=== PATIENT | female | born 1940 | race Caucasian/White ===

== ENCOUNTER → 2017-11-07 | Outpatient (CLI) | payer OTHER ==
[~2017-11-07] MED LIST: ATORVASTATIN CA20 MG PO; CLONIDINE HCL0.1 MG PO; CLOPIDOGREL75 MG PO; HYDROCHLOROTHIA25 MG PO; HYDROCODON-ACE1 EAC9 PO; IOPAMIDOL 370 MG/ML 200 ML INFUS..BTL INJ ONE; LEVOTHYROXINE75 MCG PO; LISINOPRIL40 MG PO; METFORMIN HCL500 MG PO; METOPROLOL SUCC25 MG PO; PHENYTOIN SODI100 MG PO; SERTRALINE HCL100 MG PO; SODIUM CHLORIDE 0.9% 50ML 50 ML ONE
[2017-11-07 15:32] LABS: BLOOD UREA NITROGEN 17 mg/dL (7-26); BUN/CREATININE RATIO 19 (6-25); CREATININE, SERUM 0.88 mg/dL (0.57-1.11); EST GLOMERULAR FILTRATION RATE > 60 ML/MIN (60-)
--- NOTE | 2017-11-08 08:50 | Diagnostic Imaging Report ---
PROCEDURE: CTA ABD/PEL/BILATERAL LOWER EXT RUNOFF W \T\ W/O CONTRAST COMPARISON:None. INDICATIONS:PAD, DIVERTICULOSIS OF INTESTINE TECHNIQUE: Multi-detector CT technology with Dose Reduction was employed. Images were obtained after the administration of 100 cc of Omnipaque 350 intravenously. For optimization of anatomic evaluation, multiplanar and volume rendering reconstructions were performed. Advanced 3-D off-line postprocessing were performed on a dedicated stand-alone workstation under the direct supervision of the interpreting physician. FINDINGS: Abdominal aorta and iliac vessels: Scattered atherosclerotic changes are present throughout the abdominal aorta and bilateral lower extremity runoff. Minimal amount of plaque is noted around the origins of the great vessels. The superior mesenteric, inferior mesenteric, and celiac arteries are patent. Bilateral renal arteries are patent. The common, internal, and external iliac arteries are patent bilaterally. Femoral-popliteal vessels: Multiple short segment stenoses, without significant narrowing, are present. The common, superficial, and profunda femoral arteries are patent. Infrapopliteal vessels: Multiple short segment stenoses, without segmental narrowing, are present in the popliteal and infrapopliteal vessels bilaterally. The above the knee and below the knee segments of the popliteal artery are patent. The posterior tibial and peroneal arteries are patent. No opacification of the anterior tibial arteries is noted bilaterally. Patent three vessel runoff is present in the feet bilaterally. Abdominal and Pelvic soft-tissues and organs: Lung bases: No focal consolidation or parenchymal mass. No pleural effusion or pneumothorax. Liver: Normal parenchyma. No focal mass. Biliary: Cholecystectomy. No intrahepatic or extrahepatic biliary duct dilation. Spleen: No splenomegaly. No focal mass. Pancreas: Normal enhancement. No pancreatic duct dilation. No focal mass or peripancreatic soft tissue inflammatory changes. Adrenal Glands: No adrenal nodules. Kidneys: No obstructing calculi, hydronephrosis, or solid mass. GI: The stomach, small bowel, and colon are unremarkable. No air-fluid levels. No appendix is visualized. A moderate amount of retained feces limits intraluminal evaluation of the colon. Peritoneum/Retroperitoneum: No pneumoperitoneum or free intraperitoneal fluid. No lymphadenopathy. Scattered subcentimeter noncalcified non-necrotic lymph nodes are present in the retroperitoneum in the distribution of the proximal celiac and superior mesenteric arteries. No drainable fluid collection. Reproductive Organs: Hysterectomy. No ovaries are visualized. Musculoskeletal: No acute sclerotic or lucent lesion. Degenerative changes of the lumbar spine. CONCLUSION: 1. No acute arterial abnormality. 2. No acute abnormality of the abdomen and pelvis. 3. Absence of opacification of the anterior tibial arteries may represent limited contrast bolus or chronic occlusion. Dictated by: Bird Dougherty M.D. on 11/08/2017 at 8:50 Electronically approved by: Bird Dougherty M.D. on 11/08/2017 at 8:50
== END ==
LOC: CT 14:00
PROVIDERS: ATTEND Internal Medicine Cardiovascular Disease
DX: K57.90 Diverticulosis of intestine, part unspecified, without perforation or abscess without bleeding (principal)
CPT/HCPCS: 36415; 75635; 82565; 84520; Q9967

== ENCOUNTER 2020-02-13 06:37 | Inpatient (IN) | payer MEDICARE, OTHER ==
[~2020-02-13] VITALS: Ht 175.3 cm; Wt 88.0 kg
[~2020-02-13 06:37] MED LIST changes: -IOPAMIDOL 370 MG/ML 200 ML INFUS..BTL INJ ONE; -SODIUM CHLORIDE 0.9% 50ML 50 ML ONE
[2020-02-13 07:01] LABS: BASOPHILS % 0.2 % (0.0-1.0); EOSINOPHILS # (AUTO) 0.2 (0.0-0.4); EOSINOPHILS % 1.5 % (0.0-6.0); HEMATOCRIT 42.3 % (34.2-44.1); HEMOGLOBIN 14.4 g/dL (12.0-16.0); LYMPHOCYTES # (AUTO) 2.6 (1.0-3.2); LYMPHOCYTES % 26.1 % (18.0-39.1); MEAN CORPUSCULAR HEMOGLOBIN 30.8 pg (28-32); MEAN CORPUSCULAR VOLUME 90.4 fL (81-99); MONOCYTES # (AUTO) 0.7 (0.2-0.8); MONOCYTES % 7.3 % (4.4-11.3); NEUTROPHILS # (AUTO) 6.3 (2.1-6.9); NEUTROPHILS % 64.5 % (38.7-80.0); PLATELET COUNT 196 x10e3/uL (140-360); RED BLOOD COUNT 4.68 x10e6/uL (3.6-5.1); RED CELL DISTRIBUTION WIDTH 13.2 % (11.7-14.4)
[2020-02-13 07:20] LABS: ALBUMIN 4.1 g/dL (3.5-5.0); ALBUMIN/GLOBULIN RATIO 1.3 (0.8-2.0); ANION GAP 15.7 mmol/L (8-16); CALCIUM 9.8 mg/dL (8.4-10.2); CREATININE, SERUM 0.93 mg/dL (0.57-1.11); POTASSIUM 3.7 mmol/L (3.5-5.1)
[2020-02-13 07:26] LABS: CREATINE KINASE MB 0.3 ng/mL (0-5.0)
--- NOTE | 2020-02-13 07:55 | Diagnostic Imaging Report ---
Examination: Single AP view of the chest. COMPARISON: Portable chest 11/08/2013 INDICATION: Shortness of breath IMPRESSION: 1. Lines and Tubes: None 2. Lungs are well-inflated. Stable elevation of the right hemidiaphragm, which may be due to eventration. Stable predominantly linear opacities in the right lower lung, likely representing scarring. No consolidation or effusion. 3. Cardiomediastinal silhouette is normal. Pulmonary vasculature is normal. 4. No acute bony abnormalities. Degenerative changes in the thoracic spine. Signed by: Dr. Vinh Wilkins M.D. on 02/13/2020 7:52 AM
[2020-02-13] MEDS ORDERED: CLONIDINE HCL 0.1 MG TAB PO ONE (08:00)
[2020-02-13] MEDS ORDERED: FUROSEMIDE20 MG (09:35)
[2020-02-13] MEDS ORDERED: ALBUTEROL/IPRATROPIUM 3 ML NEB NEB ONE (09:45)
[2020-02-13] MEDS ORDERED: FUROSEMIDE INJ 10 MG/ML 2 ML VIAL IV ONE (09:45)
--- NOTE | 2020-02-13 09:45 | NUR ---
notified rt edilia centeno
--- NOTE | 2020-02-13 09:48 | Emergency Department Note ---
History of Present Illnes History of Present Illness Chief Complaint: Respiratory History of Present Illness This is a 79 year old female 79 Y/O FEMALE PT AAOX3 PRESENTS TO ED WITH INTERMITTENT SOB WITH EXERTION SINCE APPROX 0400 AM; PT REPORTS; "I JUST GET SOB WHEN I TRY TO WALK.". States this is chronic but wants to get COVID test. 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 Mode: [place] Cloth Piecer Required: No Onset (how long ago): hour(s) Location: lungs Quality: sob Radiation: Reports non-radiation Severity: mild Onset quality: gradual Timing of current episode: intermittent Progression: waxing and waning Chronicity: chronic Context: Denies recent illness Relieving factors: none Exacerbating factors: none Associated symptoms: Reports shortness of breath; Denies chest pain, Denies cough, Denies diaphoresis, Denies fever/chills Treatments prior to arrival: none Past Medical/Family History Physician Review I have reviewed the patient's past medical and family history. Any updates have been documented here. Past Medical History Recent Fever: No Clinical Suspicion of Infectio: No New/Unexplained Change in Ment: No Past Medical History: Hypertension, COPD Other Medical History: ARTHRITIS HIGH CHOLESTEROL SCOLIOSIS Past Surgical History: PCI Other Surgery: NASAL KNEE BRAIN (SUBDURAL HEMATOMA) CARDIAC STENTS X 4 Social History Smoking Cessation: Never Smoker Counseling Performed: No Alcohol Use: None Any Illegal Drug Use: No TB Exposure/Symptoms: No Physically hurt or threatened: No Other Last Tetanus: UNK Any Pre-Existing Lines (PICC,: No Is patient up to date on immun: Yes Last Flu: DENIES Last Pneumovax: UTD Review of Systems Review of Systems Constitutional: Reports no symptoms EENTM: Reports no symptoms Cardiovascular: Reports no symptoms; Denies chest pain Respiratory: Reports as per HPI, Reports dyspnea, Reports dyspnea on exertion Gastrointestinal: Reports no symptoms Genitourinary: Reports no symptoms Musculoskeletal: Reports no symptoms Integumentary: Reports no symptoms Neurological: Reports no symptoms Psychological: Reports no symptoms Endocrine: Reports no symptoms Hematological/Lymphatic: Reports no symptoms Physical Exam Related Data Allergies: Coded Allergies: Beta-Blockers (Beta-Adrenergic Bloc (Verified Allergy, 11/11/13) Iodinated Contrast Media - IV Dye (Verified Allergy, 11/11/13) carbamazepine (Verified Allergy, 11/11/13) rofecoxib (Verified Allergy, 11/11/13) Triage Vital Signs Vital Signs Date Time Temp Pulse Resp B/P (MAP) Pulse Ox O2 Delivery O2 Flow Rate FiO2 02/13/20 06:37 97.9 76 27 221/95 98 Vital signs reviewed: Yes Physical Exam CONSTITUTIONAL Constitutional: Present well-developed, Present well-nourished HENT HENT: Present normocephalic, Present atraumatic, Present oropharynx clear/moist, Present nose normal HENT L/R: Present left ext ear normal, Present right ext ear normal EYES Eyes: Reports PERRL, Reports conjunctivae normal NECK Neck: Present ROM normal PULMONARY Pulmonary: Present effort normal, Present breath sounds normal CARDIOVASCULAR Cardiovascular: Present LLE edema (trace), Present RLE edema (trace) GASTROINTESTINAL Abdominal: Present soft, Present nontender, Present bowel sounds normal GENITOURINARY Genitourinary: Present exam deferred SKIN Skin: Present warm, Present dry MUSCULOSKELETAL Musculoskeletal: Present ROM normal NEUROLOGICAL Neurological: Present alert, Present oriented x 3, Present no gross motor or sensory deficits PSYCHOLOGICAL Psychological: Present mood/affect normal, Present judgement normal Results Laboratory Result Diagram: 02/13/2030 02/13/2030 Laboratory Laboratory Tests Test 02/13/20 06:30 White Blood Count 9.78 x10e3/uL (4.8-10.8) Red Blood Count 4.68 x10e6/uL (3.6-5.1) Hemoglobin 14.4 g/dL (12.0-16.0) Hematocrit 42.3 % (34.2-44.1) Mean Corpuscular Volume 90.4 fL (81-99) Mean Corpuscular Hemoglobin 30.8 pg (28-32) Mean Corpuscular Hemoglobin Concent 34.0 g/dL (31-35) Red Cell Distribution Width 13.2 % (11.7-14.4) Platelet Count 196 x10e3/uL (140-360) Neutrophils (%) (Auto) 64.5 % (38.7-80.0) Lymphocytes (%) (Auto) 26.1 % (18.0-39.1) Monocytes (%) (Auto) 7.3 % (4.4-11.3) Eosinophils (%) (Auto) 1.5 % (0.0-6.0) Basophils (%) (Auto) 0.2 % (0.0-1.0) Neutrophils # (Auto) 6.3 (2.1-6.9) Lymphocytes # (Auto) 2.6 (1.0-3.2) Monocytes # (Auto) 0.7 (0.2-0.8) Eosinophils # (Auto) 0.2 (0.0-0.4) Basophils # (Auto) 0.0 (0.0-0.1) Absolute Immature Granulocyte (auto 0.04 x10e3/uL (0-0.1) Sodium Level 143 mmol/L (136-145) Potassium Level 3.7 mmol/L (3.5-5.1) Chloride Level 106 mmol/L (98-107) Carbon Dioxide Level 25 mmol/L (22-29) Anion Gap 15.7 mmol/L (8-16) Blood Urea Nitrogen 12 mg/dL (7-26) Creatinine 0.93 mg/dL (0.57-1.11) Estimat Glomerular Filtration Rate 58 ML/MIN (60-) BUN/Creatinine Ratio 13 (6-25) Glucose Level 166 mg/dL (74-118) Calcium Level 9.8 mg/dL (8.4-10.2) Total Bilirubin 0.3 mg/dL (0.2-1.2) Aspartate Amino Transf (AST/SGOT) 24 IU/L (5-34) Alanine Aminotransferase (ALT/SGPT) 19 IU/L (0-55) Alkaline Phosphatase 176 IU/L (40-150) Creatine Kinase 325 IU/L (29-168) Creatine Kinase MB 0.30 ng/mL (0-5.0) Troponin I 0.160 ng/mL (0-0.300) B-Type Natriuretic Peptide 242.0 pg/mL (0-100) Total Protein 7.3 g/dL (6.5-8.1) Albumin 4.1 g/dL (3.5-5.0) Globulin 3.2 g/dL (2.3-3.5) Albumin/Globulin Ratio 1.3 (0.8-2.0) Lab results reviewed: Yes Imaging Imaging results reviewed: Yes Procedures 12 Lead ECG Interpretation ECG Interpretation : ECG: ECG 1 Cloth Piecer: Interpreted by ED physician Date: Feb 13, 2020 Time: 06:46 Rhythm: sinus rhythm Rate: normal (75) QRS axis: normal T wave inversion: II, III, aVF Q waves: III Clinical Impression: abnormal ECG (poor rwp) Assessment & Plan Medical Decision Making MDM check cbc, chem, cardiacs, ecg, cxr, bnp, COVID SWAB - r/o STEMI/NSTEMI, CHF, PNEUMONIA, COVID19 Reassessment Reassessment PT IMPROVED, SAYS SHE JUST WANTED COVID TEST AND WANTS TO GO HOME PT GOT UP TO BATHROOM AND BECAME TACHYPNEIC, O2 SAT 83% ON RA - WILL ADMIT - SPOKE WITH DR MERRITT Assessment & Plan Final Impression: (1) COPD (chronic obstructive pulmonary disease) (2) Dyspnea Depart Disposition: ADMITTED Last Vital Signs Date Time Temp Pulse Resp B/P (MAP) Pulse Ox O2 Delivery O2 Flow Rate FiO2 02/13/20 09:08 200/74 02/13/20 08:45 77 22 100 02/13/20 06:37 97.9 Home Meds Reported Medications Furosemide (FUROSEMIDE) 20 Mg Tablet 02/13/20 Hydrocodone Bit/Acetaminophen (HYDROCODON-ACETAMINOPHN 10-325) 1 Each Tablet, 1 TAB PO BID 11/08/13 Metformin Hcl (METFORMIN HCL) 500 Mg Tablet, 500 MG PO DAILY 11/08/13 Metoprolol Succinate (METOPROLOL SUCCINATE) 25 Mg Tab.er.24h, 25 MG PO BID 11/08/13 Lisinopril (LISINOPRIL) 40 Mg Tablet, 40 MG PO DAILY 11/08/13 Clonidine Hcl (CLONIDINE HCL) 0.1 Mg Tablet, 0.1 MG PO TID 11/08/13 Sertraline Hcl (SERTRALINE HCL) 100 Mg Tablet, 100 MG PO BID 11/08/13 Levothyroxine Sodium (LEVOTHYROXINE SODIUM) 75 Mcg Tablet, 75 MCG PO DAILY 11/08/13 Atorvastatin Calcium (ATORVASTATIN CALCIUM) 20 Mg Tablet, 20 MG PO DAILY 11/08/13 Hydrochlorothiazide (HYDROCHLOROTHIAZIDE) 25 Mg Tablet, 25 MG PO DAILY 11/08/13 Clopidogrel Bisulfate (CLOPIDOGREL) 75 Mg Tablet, 75 MG PO DAILY 11/08/13 Phenytoin Sodium Extended (PHENYTOIN SODIUM EXTENDED) 100 Mg Capsule, 100 MG PO QID 11/08/13 Medications in the ED Clonidine HCl 0.1 mg ONCE ONCE PO Last administered on 02/13/20at 09:08; Admin Dose 0.1 MG; Start 02/13/20 at 08:00; Stop 02/13/20 at 08:01; Status DC JERSEY LORENZO MD Feb 13, 2020 09:48
--- NOTE | 2020-02-13 09:57 | NUR ---
repeat cardiac done per md order
--- NOTE | 2020-02-13 10:23 | NUR ---
pt asst to restroom, became tachypnenic, sob, hypoxic. notified md of all findings. pt back in bed clean sheets, o2 at 4 lpm, hob modified high fowlers. monitors on .
[2020-02-13] MEDS ORDERED: METHYLPREDNISOLONE SOD SUCC 125 MG/2ML VIAL IV STA (10:39)
[2020-02-13] MEDS ORDERED: ALBUTEROL/IPRATROPIUM 3 ML NEB NEB PRN (10:45)
[2020-02-13] MEDS ORDERED: HYDRALAZINE HCL 20 MG/ML VIAL IV PRN ×2 (10:45→11:15)
[2020-02-13] MEDS ORDERED: METOPROLOL TARTRATE 25 MG TAB PO SCH (10:45)
[2020-02-13] MEDS: AZITHROMYCIN 500MG/NS 250 ML 250 ML IV SCH (10:50)
[2020-02-13] MEDS: CEFTRIAXONE SOD 1 GM/NS 50 ML 50 ML IV SCH (10:50)
[2020-02-13] MEDS ORDERED: CEFTRIAXONE SOD 1 GM VIAL ONE (10:52)
[2020-02-13] MEDS ORDERED: DEXTROSE 50% SYRINGE 50 ML IV PRN (11:00)
[2020-02-13] MEDS ORDERED: HYDROCODONE/APAP 10MG-325MG TAB PO PRN (11:00)
--- NOTE | 2020-02-13 11:00 | NUR ---
2ND UA SPECIMEN SENT
[2020-02-13] MEDS: INSULIN LISPRO 100 UNIT/1 ML 3ML VIAL SQ SCH ×3 (11:30→22:13)
[2020-02-13 11:31] LABS: BILIRUBIN,URINE NEGATIVE (NEGATIVE); CLARITY,URINE CLEAR (CLEAR); COLOR,URINE YELLOW (YELLOW); KETONES,URINE NEGATIVE (NEGATIVE); LEUKOCYTE ESTERASE ,URINE NEGATIVE (NEGATIVE); NITRITE,URINE NEGATIVE (NEGATIVE); PROTEIN,URINE DIPSTICK NEGATIVE (NEGATIVE); URINE UROBILINOGEN 0.2 mg/dL (0.2 - 1)
[2020-02-13 11:36] LABS: BACTERIA,URINE FEW /HPF; RBC,URINE 0-5 /HPF (0-5); WBC,URINE (MAN) 0-5 /HPF (0-5)
[2020-02-13 11:37] LABS: EPITHELIAL CELLS,URINE FEW /LPF
--- NOTE | 2020-02-13 11:45 | NUR ---
RCD PT FROM ER BY BED PT IS ALERT AND ORIENTED PT RESTING ON BED VITALS CHECKED ADMISSION ASSESSMENT AND HISTORY DONE ,IV PATENT BY SALINE FLUSH INSTRUCTED THE PT ABOUT HOSPITAL POLICY AND ROUTINE AND VISITING POLICY BED LOW AND LOCKED CALL LIGHT IN REACH
[2020-02-13] MEDS: CLOPIDOGREL BISULFATE 75 MG TAB PO SCH (12:00)
--- NOTE | 2020-02-13 12:12 | Diagnostic Imaging Report ---
EXAM: CT Chest WITHOUT intravenous contrast 02/13/2020 11:30 AM INDICATION: Shortness of breath COMPARISON: Chest radiograph of earlier the same day TECHNIQUE: Chest was scanned utilizing a multidetector helical scanner from the lung apex through the level of the adrenal glands without administration of IV contrast. Coronal and sagittal reformations were obtained. Routine protocol was performed. IV CONTRAST: None RADIATION DOSE: Total DLP: 429 mGy*cm. Dose modulation, iterative reconstruction, and/or weight based adjustment of the mA/kV was utilized to reduce the radiation dose to as low as reasonably achievable. COMPLICATIONS: None FINDINGS: LINES/ TUBES: None. LUNGS AND AIRWAYS: The central airways are patent. Mild bilateral centrilobular emphysema. No focal consolidation or pulmonary edema. Right lower lobe dependent subsegmental atelectasis. 4 mm right lower lobe nodule (axial image 68). PLEURA: The pleural spaces are clear. HEART AND MEDIASTINUM: The thyroid gland is normal. No supraclavicular or axillary lymphadenopathy. Several prominent mediastinal lymph nodes do not meet size criteria for lymphadenopathy. No hilar lymphadenopathy. The heart is not enlarged. No pericardial effusion. Scattered atherosclerotic calcifications involve the thoracic aorta, coronary arteries, and proximal great vessels. UPPER ABDOMEN: Status post cholecystectomy. No acute findings in the upper abdomen. BONES: No acute osseous injury. No suspicious lytic or blastic lesions. Degenerative changes of the visualized spine. SOFT TISSUES: Unremarkable. IMPRESSION: Mild centrilobular emphysema. No focal pneumonia or pulmonary edema. 4 mm right lower lobe pulmonary nodule. If the patient is low risk, no further follow-up imaging is necessary. If the patient is high risk, follow-up chest CT at 12 months is optional. Signed by: Favio Riojas MD on 02/13/2020 12:08 PM
[2020-02-13] MEDS: LEVOTHYROXINE SODIUM 75 MCG TAB PO SCH (12:15)
[2020-02-13] MEDS: ENOXAPARIN INJ 80 MG/0.8 ML SYR SC SCH ×2 (12:15→20:45)
[2020-02-13 12:23] VITALS: BP 191/84
[2020-02-13] MEDS: METOPROLOL SUCCINATE 25 MG TAB XL PO SCH ×2 (12:45→20:45)
[2020-02-13] MEDS: PHENYTOIN SODIUM EXT REL 100 MG CAP PO SCH ×3 (13:00→20:44)
[2020-02-13] MEDS: CLONIDINE HCL 0.1 MG TAB PO SCH ×2 (15:00→20:44)
[2020-02-13] MEDS: ASPIRIN 325 MG TAB PO SCH (15:15)
[2020-02-13 15:54] VITALS: BP 119/84
[2020-02-13 16:07] VITALS: BP 119/84
[2020-02-13 16:10] VITALS: BP 182/93
[2020-02-13] MEDS: SERTRALINE HCL 100 MG TAB PO SCH (16:39)
[2020-02-13] MEDS ORDERED: METOPROLOL SUCCINATE 25 MG TAB XL PO SCH (17:00)
--- NOTE | 2020-02-13 17:56 | History and Physical ---
PRIMARY CARE PHYSICIAN: Ally Allen MD CHIEF COMPLAINT: Increasing shortness of breath. HISTORY OF PRESENT ILLNESS: The patient is an 79-year-old female with increasing shortness of breath and wheezing. The patient also did complain of some low-grade temperature. The patient came to the emergency room. Chest x-ray show some possible scarring and possible infiltrate. CT of the chest is still pending. The patient has COVID-19 test rapid test still pending at this time. The patient is otherwise stable. PAST MEDICAL HISTORY: COPD, hypertension, dyslipidemia, osteoarthritis, scoliosis, coronary artery disease with previous 4 stents placement, depression and anxiety disorder. PAST SURGICAL HISTORY: Coronary stent, knee surgery, and subdural hematoma evacuation. SOCIAL HISTORY: The patient does not smoke or use alcohol. No regular drug. ALLERGIES: BETA BLOCKERS, IV DYE, CARBAMAZEPINE, AND CELEBREX. HOME MEDICATIONS: List is reviewed. REVIEW OF SYSTEMS: As mentioned above. Shortness of breath. Low-grade fever. PHYSICAL EXAMINATION: VITAL SIGNS: Temperature is 98, blood pressure 221/95, pulse rate 76, respirations 27. GENERAL: The patient is not in acute distress. She is awake. HEENT: Normocephalic and atraumatic. Anicteric. NECK: Supple grossly. PULMONARY: Bilateral coarse annular rhonchi both upper and lower lobes. CARDIOVASCULAR: S1, S2. Regular rate and rhythm. ABDOMEN: Soft, nontender, nondistention. Obesity. EXTREMITIES: No cyanosis or edema. NEUROLOGIC: No gross focal deficit. LABORATORY DATA: Sodium is 143, potassium 3.7, chloride 106, bicarb 25, BUN 12, creatinine 0.9, and glucose is 166, alkaline phosphatase is 172. CK is 325, CK-MB is 0.3, troponin I 0.16 and 0.81. BNP is 242. COVID-19 pending. WBC 9.8, hemoglobin 14.4, hematocrit 42, and platelet 196,000. Chest x-ray, possible infiltrate. IMPRESSION: 1. Increasing shortness of breath with positive trending cardiac enzyme TNI from 0.1 to 0.8, and elevation of BNP. This could be acute congestive heart failure. CT scan of the chest still pending. Chest x-ray is insignificant. 2. Baseline coronary artery disease with previous 4 stents. 3. COVID-19, ruled out. 4. Baseline multiple medical problems including hypertension, coronary artery disease, diabetes type 2 and dyslipidemia. PLAN: Obtain 2D echocardiogram. CT chest without contrast. Consultation with Rivera Stratton. One shot of Lovenox for now. We will follow up on patient and repeated TNI peaked. The patient will be admitted. Blood pressure control since she had hypertensive urgency. MD HENRIETTA Lai/REJI /[id number]
--- NOTE | 2020-02-13 18:45 | NUR ---
PT RESTING ON BED BED SIDE REPORT GIVEN TO ONCOMING NURSE
--- NOTE | 2020-02-13 19:20 | NUR ---
Patient received sitting up in bed. AAO x 4. Patient had no complaints of pain. Respirations even and non-labored. Safety measures in place. Patient instructed to call for assistance when needed. Call light within reach.
[2020-02-13 20:10] VITALS: BP 170/83
[2020-02-13] MEDS: ATORVASTATIN 20 MG TAB PO SCH (20:44)
[2020-02-13 21:00] VITALS: BP 170/83
--- NOTE | 2020-02-13 21:11 | Consultation ---
DATE OF CONSULTATION: 02/14/2020 Cardiology Consultation REASON FOR CONSULTATION: Ms. Slater is a pleasant 79-year-old woman, hypertensive diabetic with known coronary artery disease, who presents to the emergency room this morning when brought by ambulance for shortness of breath. HISTORY OF PRESENT ILLNESS: The patient reports she was fine yesterday, but awoke around 04:30 this morning to go to the bathroom and then found that she was short of breath and could not catch her breath. She decided to set up and then call an ambulance. She denies any chest discomfort. She tells me that she had myocardial infarction in 2003 and the symptom at that time was neck and bilateral shoulder and arm discomforts, which she has not had since that time. PAST MEDICAL HISTORY: Significant for previous myocardial infarction, longstanding hypertension and diabetes. She had bilateral cataract surgeries, right knee arthroscope, and cholecystectomy in the past. HOME MEDICATIONS: Listed on the chart and include atorvastatin 20 mg daily, clonidine 0.1 mg 1-1/2 tablet twice daily, clopidogrel 75 mg daily, furosemide 20 mg daily, hydrochlorothiazide 25 mg daily, Tylenol No. 3, levothyroxine 75 mcg daily, lisinopril 40 mg daily, metformin 500 mg once a day, metoprolol succinate 25 mg twice a day, Dilantin 100 mg 4 times a day, and sertraline 100 mg twice a day. PERSONAL AND SOCIAL HISTORY: She lives in a nursing home apartment. She does not smoke or drink. REVIEW OF SYSTEMS: CARDIAC: She reports that her ankles swell sometimes. She does not regularly check her blood pressure at home. PHYSICAL EXAMINATION: GENERAL: At this time, shows a pleasant, alert woman, who appears comfortable. VITAL SIGNS: Presenting blood pressure was 191/84, pulse is 80 and regular. HEAD, EYES, EARS, NOSE, AND THROAT: Shows poor dentition. NECK: No jugular venous distention. No bruits. THORAX: Heart sounds S1 and S2 are equal. No murmurs. LUNGS: Clear. ABDOMEN: Protuberant. Normal bowel sounds. EXTREMITIES: She has no significant edema. LABORATORY DATA: EKG shows sinus rhythm with nonspecific ST and T-wave changes. Her CPKs are 325 and 333, which were both elevated. CK-MB are 0.3 and 1.0, which are both normal, and troponins are 0.16 and 0.818 with normal being less than 0.3. Her BNP is 242. ASSESSMENTS: 1. Sudden onset dyspnea, may either be atypical angina or congestive failure. 2. Hypertension. Did not take medications this morning. 3. Type 2 adult onset diabetes. 4. Congestive heart failure characterized by elevated BNP, may be multifactorial with elevated blood pressure and perhaps LV dysfunction after myocardial infarction, although she says she was not told she had significant damage at that myocardial infarction in 2003, but did have 3 stents placed at that time. PLAN: We will monitor blood pressure. Add aspirin to her regimen. Recheck enzymes. Echo. Monitor blood pressure. She will need further coronary evaluation. Thank you for asking me to see her in consultation. MD JOE Morales/REJI /[id number] cc: Ally Allen MD
[2020-02-13 21:17] LABS: CREATINE KINASE MB 2.6 ng/mL (0-5.0)
--- NOTE | 2020-02-13 21:43 | NUR ---
Dr. Efrain Stratton notified of critical level of troponin (1.66). No new order received.
[2020-02-14] VITALS (9 sets, daily range): BP systolic 151–191; BP diastolic 70–99
[2020-02-14 04:36] LABS: CREATINE KINASE MB 5.1 ng/mL (0-5.0)
--- NOTE | 2020-02-14 06:05 | NUR ---
Dr. Efrain Stratton notified of critical level of troponin (1.22). Order received to cancel cardiac enzyme scheduled for 10:40 am.
[2020-02-14 06:08] LABS: BASOPHILS % 0.2 % (0.0-1.0); EOSINOPHILS # (AUTO) 0.1 (0.0-0.4); EOSINOPHILS % 0.6 % (0.0-6.0); HEMATOCRIT 38.8 % (34.2-44.1); HEMOGLOBIN 13.5 g/dL (12.0-16.0); LYMPHOCYTES # (AUTO) 2.2 (1.0-3.2); LYMPHOCYTES % 20.4 % (18.0-39.1); MEAN CORPUSCULAR HEMOGLOBIN 31.5 pg (28-32); MEAN CORPUSCULAR HGB CONC 34.8 g/dL (31-35); MEAN CORPUSCULAR VOLUME 90.4 fL (81-99); MONOCYTES # (AUTO) 0.9 (0.2-0.8); MONOCYTES % 8.3 % (4.4-11.3); NEUTROPHILS # (AUTO) 7.4 (2.1-6.9); NEUTROPHILS % 70.2 % (38.7-80.0); PLATELET COUNT 179 x10e3/uL (140-360); RED BLOOD COUNT 4.29 x10e6/uL (3.6-5.1); RED CELL DISTRIBUTION WIDTH 12.8 % (11.7-14.4)
[2020-02-14 06:40] LABS: ALANINE AMINOTRANSFERASE 16 IU/L (0-55); ALBUMIN 3.6 g/dL (3.5-5.0); ALBUMIN/GLOBULIN RATIO 1.2 (0.8-2.0); ALKALINE PHOSPHATASE 154 IU/L (40-150); BLOOD UREA NITROGEN 12 mg/dL (7-26); BUN/CREATININE RATIO 14 (6-25); CALCIUM 9.2 mg/dL (8.4-10.2); CARBON DIOXIDE 27 mmol/L (22-29); CHLORIDE 104 mmol/L (98-107); CHOL/HDL RATIO 4.3 (3.0-3.6); CHOLESTEROL 132 MD/DL (0-199); CREATININE, SERUM 0.84 mg/dL (0.57-1.11); EST GLOMERULAR FILTRATION RATE > 60 ML/MIN (60-); GLUCOSE 129 mg/dL (74-118); HDL CHOLESTEROL 31 MG/DL (40-60); LDL CHOLESTEROL 73 MG/DL (60-130); SODIUM 139 mmol/L (136-145); TRIGLYCERIDES 142 MG/DL (0-149)
[2020-02-14] MEDS: LEVOTHYROXINE SODIUM 75 MCG TAB PO SCH (07:04)
--- NOTE | 2020-02-14 07:05 | NUR ---
RCD PT AT BED PT IS ALERT AND ORIENTED PT RESTING ON BED NO SIGNS OF ANY DISTRESS NOTED IV PATENT BED LOW AND LOCKED CALL LIGHT IN REACH
[2020-02-14] MEDS: INSULIN LISPRO 100 UNIT/1 ML 3ML VIAL SQ SCH ×4 (07:30→20:28)
[2020-02-14] MEDS: SERTRALINE HCL 100 MG TAB PO SCH ×2 (09:00→16:19)
[2020-02-14] MEDS: CLONIDINE HCL 0.1 MG TAB PO SCH ×3 (09:00→20:27)
[2020-02-14] MEDS: CLOPIDOGREL BISULFATE 75 MG TAB PO SCH (09:00)
[2020-02-14] MEDS ORDERED: LEVOTHYROXINE SODIUM 75 MCG TAB PO SCH (09:00)
[2020-02-14] MEDS: ENOXAPARIN INJ 80 MG/0.8 ML SYR SC SCH ×2 (09:00→20:28)
[2020-02-14] MEDS: POTASSIUM CHLORIDE 20 MEQ TAB CR PO SCH (09:00)
[2020-02-14] MEDS: ASPIRIN 325 MG TAB PO SCH (09:00)
[2020-02-14] MEDS: FUROSEMIDE 20 MG TAB PO SCH (09:00)
[2020-02-14] MEDS ORDERED: CLOPIDOGREL BISULFATE 75 MG TAB PO SCH (09:00)
[2020-02-14] MEDS: PHENYTOIN SODIUM EXT REL 100 MG CAP PO SCH ×4 (09:00→20:27)
[2020-02-14] MEDS: METOPROLOL SUCCINATE 25 MG TAB XL PO SCH ×2 (09:00→20:28)
[2020-02-14] MEDS: AZITHROMYCIN 500MG/NS 250 ML 250 ML IV SCH (09:00)
[2020-02-14] MEDS ORDERED: SODIUM CHLORIDE 0.9% 250ML 250 ML ONE (09:27)
[2020-02-14] MEDS ORDERED: POTASSIUM CHLORIDE 10MEQ EA PO ONE (10:15)
[2020-02-14] MEDS: LISINOPRIL 20 MG TAB PO SCH (10:45)
[2020-02-14] MEDS: CEFTRIAXONE SOD 1 GM/NS 50 ML 50 ML IV SCH (10:45)
--- NOTE | 2020-02-14 12:19 | Consultation ---
DATE OF CONSULTATION: Pulmonary Consultation Patient of Dr. Allen , Dr. Koch, and Dr. Dr. Stratton, well known to Pulmonary Service. HISTORY OF PRESENT ILLNESS: Tha 79-year-old woman with history of moderate COPD, coronary artery disease with 4 stents in the past, hypertension, diabetes, obstructive sleep apnea, but she declines using CPAP. She has had cataract surgery, gallbladder surgery, knee surgery, subdural evacuation, stents were placed in 2003. She is an ex-smoker. Smoked for many years, two packs a day. Worked in [employer]. ALLERGIES: BETA-BLOCKERS, TEGRETOL AND VIOXX. PAST MEDICAL HISTORY: She has a history of SC in the past. CURRENT MEDICATIONS: Included Lipitor, Plavix, Lasix, hydrochlorothiazide, Tylenol 3, Levoxyl, lisinopril, metformin, metoprolol, Dilantin, and Zofran. PHYSICAL EXAMINATION: GENERAL: A well-developed, sprightly white female, comfortable on nasal oxygen. She did not have chest pain. She got up to the bathroom yesterday and became very short of breath and found to have a non-STEMI. HEAD: Normocephalic, atraumatic. EYES: Extraocular movements intact. LUNGS: Diminished breath sounds. Few basilar rales. HEART: Regular rhythm. ABDOMEN: Nontender. EXTREMITIES: Nonedematous. IMPRESSION: 1. Myocardial infarction. 2. Heart failure. 3. Chronic obstructive pulmonary disease . No obvious pneumonia. PLAN: Deescalate antibiotics. Therapy of SC and heart failure as per Dr. Stratton. Therapy of diabetes per Dr. Koch. Hold the metformin prior to cardiac cath on Sunday, which is anticipated. This was discussed at length with the patient. Thank you for this kind referral. Theron Alexandre MD DS/MODL /[id number]
--- NOTE | 2020-02-14 18:38 | NUR ---
PT RESTING ON BED BED SIDE REPORT GIVEN TO ONCOMING NURSE
[2020-02-14] MEDS: ATORVASTATIN 20 MG TAB PO SCH (20:27)
--- NOTE | 2020-02-14 20:51 | NUR ---
DENIES PAIN OR DISCOMFORT AT THIS TIME, UP WALKING AROUND ROOM LOOKING FOR OUTLET TO PLUG HER PHONE UP, EDUCATED ON FALL RISK, AND REQUESTED THAT SHE PLACE HER NON-SKLID SOCKS BACK ON FLOOR, BUT SHE REFUSED STATING "iTS FINE:"
[2020-02-15] VITALS (12 sets, daily range): BP systolic 151–174; BP diastolic 64–85
[2020-02-15] MEDS: LEVOTHYROXINE SODIUM 75 MCG TAB PO SCH (05:32)
[2020-02-15 06:02] LABS: BASOPHILS % 0.4 % (0.0-1.0); EOSINOPHILS # (AUTO) 0.2 (0.0-0.4); EOSINOPHILS % 2.3 % (0.0-6.0); HEMATOCRIT 37.9 % (34.2-44.1); HEMOGLOBIN 12.6 g/dL (12.0-16.0); LYMPHOCYTES # (AUTO) 2.3 (1.0-3.2); LYMPHOCYTES % 29.4 % (18.0-39.1); MEAN CORPUSCULAR HEMOGLOBIN 30.7 pg (28-32); MEAN CORPUSCULAR HGB CONC 33.2 g/dL (31-35); MEAN CORPUSCULAR VOLUME 92.4 fL (81-99); MONOCYTES # (AUTO) 0.6 (0.2-0.8); MONOCYTES % 8.1 % (4.4-11.3); NEUTROPHILS # (AUTO) 4.6 (2.1-6.9); NEUTROPHILS % 59.4 % (38.7-80.0); PLATELET COUNT 172 x10e3/uL (140-360); RED CELL DISTRIBUTION WIDTH 13.2 % (11.7-14.4)
[2020-02-15 06:25] LABS: POTASSIUM 3.7 mmol/L (3.5-5.1)
[2020-02-15 06:26] LABS: ANION GAP 11.7 mmol/L (8-16); CALCIUM 8.7 mg/dL (8.4-10.2); CREATININE, SERUM 0.91 mg/dL (0.57-1.11)
[2020-02-15 06:47] LABS: MAGNESIUM 1.8 MG/DL (1.3-2.1); PHOSPHORUS 3.4 MG/DL (2.3-4.7)
--- NOTE | 2020-02-15 07:17 | NUR ---
BSSR GIVEN TO DAYSMARLYNFT JORDYN WALLACE, PATIENT AWAKE ALERT, IN BATHROOM, REMAIN ON OXYGEN 4 LITERS, NO DISTRESS NOTED
[2020-02-15] MEDS: INSULIN LISPRO 100 UNIT/1 ML 3ML VIAL SQ SCH ×4 (07:30→20:37)
[2020-02-15] MEDS: ALBUTEROL/IPRATROPIUM 3 ML NEB NEB SCH ×5 (07:45→23:00)
[2020-02-15] MEDS: ASPIRIN 325 MG TAB PO SCH (08:13)
[2020-02-15] MEDS: POTASSIUM CHLORIDE 20 MEQ TAB CR PO SCH ×2 (08:13→08:18)
[2020-02-15] MEDS: PHENYTOIN SODIUM EXT REL 100 MG CAP PO SCH ×4 (08:13→20:36)
[2020-02-15] MEDS: FUROSEMIDE 20 MG TAB PO SCH (08:14)
[2020-02-15] MEDS: LISINOPRIL 20 MG TAB PO SCH (08:16)
[2020-02-15] MEDS: METOPROLOL SUCCINATE 25 MG TAB XL PO SCH ×2 (08:17→20:37)
[2020-02-15] MEDS: CLONIDINE HCL 0.1 MG TAB PO SCH ×3 (08:17→20:36)
[2020-02-15] MEDS: SERTRALINE HCL 100 MG TAB PO SCH ×2 (08:17→18:21)
[2020-02-15] MEDS: ENOXAPARIN INJ 80 MG/0.8 ML SYR SC SCH (08:17)
[2020-02-15] MEDS: AZITHROMYCIN 250 MG TAB PO SCH (08:17)
[2020-02-15] MEDS: CLOPIDOGREL BISULFATE 75 MG TAB PO SCH (08:17)
--- NOTE | 2020-02-15 08:47 | Diagnostic Imaging Report ---
EXAMINATION: CHEST SINGLE (PORTABLE) INDICATION: Shortness of breath. COMPARISON: CT chest 02/13/2020 and chest radiograph 02/13/2020. FINDINGS: TUBES and LINES: None. LUNGS: Lungs are moderately inflated. Emphysematous findings of the lungs. Mild patchy and linear bibasilar opacities, likely atelectasis. No evidence of lobar consolidation or pulmonary edema. PLEURA: No pleural effusion or pneumothorax. HEART AND MEDIASTINUM: The cardiomediastinal silhouette is unremarkable. There are atherosclerotic calcifications within the aorta. BONES AND SOFT TISSUES: No acute osseous abnormality. Degenerative changes of the visualized spine. Remote healed right lateral rib fracture. UPPER ABDOMEN: No free air under the diaphragm. IMPRESSION: No acute thoracic abnormality. Signed by: Dr. Papa Corona MD on 02/15/2020 8:43 AM
[2020-02-15] MEDS ORDERED: SODIUM CHLORIDE FLUSH 10 ML SYR INJ PRN (11:15)
[2020-02-15] MEDS ORDERED: HYDROCORTISONE SOD SUCCINATE 100 MG VIAL IV PRN (11:15)
[2020-02-15] MEDS ORDERED: PREDNISONE 20 MG TAB PO ONE (18:00)
--- NOTE | 2020-02-15 18:45 | NUR ---
Report given to retail shift supervisor. Respiration even and unlabored without SOB. Call light in reach.
[2020-02-15] MEDS: ATORVASTATIN 20 MG TAB PO SCH (20:36)
[2020-02-16] VITALS (12 sets, daily range): BP systolic 109–176; BP diastolic 67–98
[2020-02-16] MEDS: ALBUTEROL/IPRATROPIUM 3 ML NEB NEB SCH ×6 (03:25→23:30)
[2020-02-16 05:28] LABS: INR 0.87; PARTIAL THROMBOPLASTIN TIME 30.8 seconds (23.8-35.5); PROTHROMBIN TIME 12.3 seconds (11.9-14.5)
[2020-02-16 05:34] LABS: CHOL/HDL RATIO 3.7 (3.0-3.6)
[2020-02-16] MEDS: LEVOTHYROXINE SODIUM 75 MCG TAB PO SCH (06:46)
[2020-02-16] MEDS ORDERED: SODIUM CHLORIDE 0.9% 1000ML 1,000 ML IV SCH (07:00)
[2020-02-16] MEDS: INSULIN LISPRO 100 UNIT/1 ML 3ML VIAL SQ SCH ×4 (07:30→20:41)
--- NOTE | 2020-02-16 07:30 | NUR ---
PAGED DR. W[place] REGARDING PT ELEVATED BP. PT IS ON NPO FOR PROCEDURE.
--- NOTE | 2020-02-16 08:30 | NUR ---
ADRIAN TO ADMINISTER MORNING MEDS PER DR WASHINGTON Addendum: 02/16/20 at 0902 by Ulysses Jesus RN MORNING BP MED CLONIDINE WITH SIP OF WATER
[2020-02-16] MEDS: CLONIDINE HCL 0.1 MG TAB PO SCH ×3 (08:35→21:00)
[2020-02-16] MEDS: SERTRALINE HCL 100 MG TAB PO SCH ×2 (09:00→18:00)
[2020-02-16] MEDS: ASPIRIN 325 MG TAB PO SCH (09:00)
[2020-02-16] MEDS: PHENYTOIN SODIUM EXT REL 100 MG CAP PO SCH ×4 (09:00→20:41)
[2020-02-16] MEDS: LISINOPRIL 20 MG TAB PO SCH (09:00)
[2020-02-16] MEDS ORDERED: DIPHENHYDRAMINE HCL INJ 50 MG/ML VIAL IV ONE (09:00)
--- NOTE | 2020-02-16 09:10 | NUR ---
PAGED PHARMACY REGARDING SOLU CORTEF DOSAGE. ADMINISTER 100 MG PER THE PHARMACY.
--- NOTE | 2020-02-16 09:40 | NUR ---
PT OFF UNIT FOR PROCEDURE IN SAFE CONDITION.
[2020-02-16] MEDS ORDERED: MIDAZOLAM HCL 2 MG/2 ML VIAL ONE (09:52)
[2020-02-16] MEDS ORDERED: HEPARIN SOD (PORCINE) 1000 UNIT/ML 30ML ONE (09:52)
[2020-02-16] MEDS ORDERED: LIDOCAINE HCL 2% LOCAL 20 ML VIAL ONE (09:53)
[2020-02-16] MEDS ORDERED: NITROGLYCERIN/D5W 200 MCG/ML 250 ML ONE (09:53)
[2020-02-16] MEDS ORDERED: SODIUM CHLORIDE 0.9% 1000ML 1,000 ML ONE (09:53)
[2020-02-16] MEDS ORDERED: FENTANYL CITRATE/PF 100MCG/2 ML INJ ONE (09:53)
[2020-02-16] MEDS ORDERED: IOPAMIDOL 370 MG/ML 200 ML INFUS..BTL INJ ONE ×2 (09:53→10:35)
[2020-02-16] MEDS ORDERED: HEPARIN SOD/SOD CHLORIDE 2,000 ML ONE (09:53)
[2020-02-16] MEDS ORDERED: LABETALOL HCL 20 ML ONE (10:11)
[2020-02-16] MEDS ORDERED: EPTIFIBATIDE 20 ML ONE (10:24)
[2020-02-16] MEDS ORDERED: EPTIFIBATIDE 75mg 100ML 100 ML ONE (10:24)
[2020-02-16] MEDS ORDERED: MORPHINE SULFATE INJ 4 MG/ML INJ 1ML ONE (10:26)
[2020-02-16] MEDS ORDERED: HYDRALAZINE HCL 20 MG/ML VIAL ONE (10:39)
[2020-02-16] MEDS: SODIUM CHLORIDE 0.9% 1000ML 1,000 ML IV SCH ×2 (11:15→15:30)
[2020-02-16] MEDS ORDERED: ACETAMINOPHEN 325 MG TAB PO PRN (11:15)
[2020-02-16] MEDS ORDERED: EPTIFIBATIDE 2 MG/1 ML 10ML VIAL IV ONE (11:15)
[2020-02-16] MEDS ORDERED: MORPHINE SULFATE INJ 4 MG/ML INJ 1ML IV PRN (11:15)
--- NOTE | 2020-02-16 11:15 | NUR ---
bedside report received from Yu Post RN. Alert oriented and appropriate, PERRLA, respirations even and unlabored to room air. Pulses x4 extremities equal and strong. Right femoral sheath appears patent w/o s/s of hematoma. pt placed on bedside monitor for recovery. Skin warm and dry integrity appears intact. IV 20g to right AC presents healthy w/o s/s of infiltration or complaint. Integrilin infusing @ 14.1ml/hr . Abdomen soft and supple. pt offered toileting, voided approximately 250ml of clear yellow urine. No personal affects with patient. Family not available. Pt understanding of POC for sheath removal. Dr Stratton to bedside. Currently w/o complaint of pain or need. Call light within reach, bed low and locked, side rails up x2. -cgf
[2020-02-16] MEDS ORDERED: ASPIRIN 325 MG TAB ONE (11:17)
[2020-02-16] MEDS ORDERED: CLOPIDOGREL BISULFATE 75 MG TAB ONE (11:17)
[2020-02-16] MEDS ORDERED: MORPHINE SULFATE 2 MG/ML SYR 1ML IV PRN (11:45)
--- NOTE | 2020-02-16 12:25 | NUR ---
Pt out of room and no family at bedside. A card was left at the bedside to indicate a missed visit from a member of the Spiritual Care team and to inform the pt and family of the availability of a Sales Enablement Analyst 24 hours a day/7 days a week. A customer leader will follow up as able. NICO PORTILLO Sales Enablement Analyst Spiritual Care Department O: [phone]
--- NOTE | 2020-02-16 13:50 | NUR ---
ACT 158, meets criteria to pull. Sheath pulled by Dominic MERINO. PT education performed. Suture relieved from sheath prior to DC.
[2020-02-16] MEDS ORDERED: NITROGLYCERIN 0.4 MG SUBL SL PRN (14:45)
--- NOTE | 2020-02-16 14:45 | NUR ---
Hemostasis achieved after 45minutes of manual pressure to right groin. Site is free from discolor, mass, and obvious hematoma. no tracking allong inguinal line. Pedal pulses palpable. PT verbalized understanding to guard right groin with pressure during cough/movement. Aware of bedrest. pressure dressing applied. pt transported on telemetry back to room 204. groin assessed by Rafat COBB w/ transporting nurse.
--- NOTE | 2020-02-16 15:00 | NUR ---
RECEIVED PT FROM CLINICAL TRIAL ASSOCIATE. DRESSING CDI. PT IS AAOX4. NO DISTRESS NOTED. PT IS IN SUPINE POSITION. ALL SAFETY MEASURES IN PLACE. PT DENIES NEEDS AT THIS TIME.
[2020-02-16] MEDS: EPTIFIBATIDE 75mg 100ML 100 ML IV SCH ×2 (15:30→22:00)
[2020-02-16] MEDS: POTASSIUM CHLORIDE 20 MEQ TAB CR PO SCH (15:38)
[2020-02-16] MEDS: FUROSEMIDE 20 MG TAB PO SCH (15:39)
[2020-02-16] MEDS: AZITHROMYCIN 250 MG TAB PO SCH (15:39)
--- NOTE | 2020-02-16 16:01 | NUR ---
PER DRUG HX, PT ALLERGIC TO BETA BLOCKERS. CONFIRMED WITH PHARMACY. OKAY TO ADMINISTER METOPROLOL PER PT AND PHARMACY.
[2020-02-16] MEDS: METOPROLOL TARTRATE 25 MG TAB PO SCH (17:00)
--- NOTE | 2020-02-16 19:10 | NUR ---
BEDSIDE SHIFT REPORT GIVEN TO THE UNDERCOATER RN. PT DENIED FURTHER NEEDS.
--- NOTE | 2020-02-16 19:10 | NUR ---
Received bedside report from [facility] nurse. Pt given instructions to lay flat after heart cath til tomorrow. Pt noted to be at a 30degree angle. Pt states she does not want to be flat and requesting that the head of the bed stay as it is. Surgical site to right femoral area has dressing. noted dry and intact with no bleeding or drainage noted. Call light in reach. Will cont to monitor.
[2020-02-16] MEDS ORDERED: ATORVASTATIN 20 MG TAB PO SCH (21:00)
[2020-02-17] VITALS: BP 159/83
[2020-02-17] MEDS: ALBUTEROL/IPRATROPIUM 3 ML NEB NEB SCH ×3 (03:00→11:14)
[2020-02-17 04:00] VITALS: BP 125/75
[2020-02-17] MEDS: SODIUM CHLORIDE 0.9% 1000ML 1,000 ML IV SCH ×2 (04:26→07:15)
[2020-02-17] MEDS: LEVOTHYROXINE SODIUM 75 MCG TAB PO SCH (05:27)
[2020-02-17 05:51] LABS: BASOPHILS % 0.4 % (0.0-1.0); EOSINOPHILS # (AUTO) 0.3 (0.0-0.4); EOSINOPHILS % 3.4 % (0.0-6.0); HEMATOCRIT 37.7 % (34.2-44.1); HEMOGLOBIN 12.5 g/dL (12.0-16.0); LYMPHOCYTES # (AUTO) 2.1 (1.0-3.2); LYMPHOCYTES % 25.5 % (18.0-39.1); MEAN CORPUSCULAR HEMOGLOBIN 30.9 pg (28-32); MEAN CORPUSCULAR HGB CONC 33.2 g/dL (31-35); MEAN CORPUSCULAR VOLUME 93.1 fL (81-99); MONOCYTES # (AUTO) 0.6 (0.2-0.8); MONOCYTES % 7.6 % (4.4-11.3); NEUTROPHILS # (AUTO) 5.1 (2.1-6.9); NEUTROPHILS % 62.9 % (38.7-80.0); PLATELET COUNT 186 x10e3/uL (140-360); RED BLOOD COUNT 4.05 x10e6/uL (3.6-5.1); RED CELL DISTRIBUTION WIDTH 13.3 % (11.7-14.4)
[2020-02-17 06:22] LABS: ANION GAP 12.4 mmol/L (8-16); BLOOD UREA NITROGEN 11 mg/dL (7-26); BUN/CREATININE RATIO 12 (6-25); CALCIUM 8.7 mg/dL (8.4-10.2); CARBON DIOXIDE 27 mmol/L (22-29); CHLORIDE 104 mmol/L (98-107); CREATININE, SERUM 0.89 mg/dL (0.57-1.11); EST GLOMERULAR FILTRATION RATE > 60 ML/MIN (60-); GLUCOSE 97 mg/dL (74-118); POTASSIUM 3.4 mmol/L (3.5-5.1); SODIUM 140 mmol/L (136-145)
[2020-02-17] MEDS: INSULIN LISPRO 100 UNIT/1 ML 3ML VIAL SQ SCH (07:30)
[2020-02-17 07:41] VITALS: BP 144/85
[2020-02-17] MEDS ORDERED: LISINOPRIL 10 MG TAB PO SCH (09:00)
[2020-02-17] MEDS ORDERED: ASPIRIN 325 MG TAB PO SCH (09:00)
[2020-02-17] MEDS ORDERED: CLOPIDOGREL BISULFATE 75 MG TAB PO SCH (09:00)
[2020-02-17] MEDS ORDERED: POTASSIUM CHLORIDE 10MEQ EA PO NR (09:00)
[2020-02-17 09:30] VITALS: BP 144/85
--- NOTE | 2020-02-17 10:03 | Discharge Summary ---
PRIMARY CARE PHYSICIAN: Ally Allen MD. CONSULTANTS: 1. Rivera Stratton MD. 2. Theron Alexandre MD. FINAL DIAGNOSES: 1. Acute exacerbation of chronic obstructive pulmonary disease associated with acute hypoxia, required oxygen. That has resolved. 2. [id number] myocardial infarction, status post cardiac catheterization. The patient has 2 stents to the right coronary artery. 3. Multiple baseline problems including atherosclerotic heart disease with coronary artery disease, previous stent, chronic obstructive pulmonary disease, ex-smoker, hypertension, dyslipidemia. SUMMARY: The patient is an 79-year-old female, who came to the hospital with increasing shortness of breath and developed chest pain as well. The patient was wheezing at that time. The patient received IV steroids and empiric antibiotics for her acute exacerbation of COPD, acute bronchitis. The patient also has increase in troponin I due to cardiac stress. Dr. Rivera Stratton was consulted and the patient was seen. The patient's EKG showed possible anterior infarct. Echocardiogram showed ejection fraction of 60%. The patient was stable. She underwent cardiac catheterization on February 16, 2020. The patient found to have blockage in 2 areas of RCA. The patient subsequently received 2 stents to the RCA. She is stable now. She is comfortable. She is ambulatory. The patient will go home today. She did not know required oxygen. The patient will get nebulizer medication and inhalers. She will need to follow up with Dr. Alexandre next week for medication reconciliation and follow up with Dr. Rivear Stratton for her cardiac stent followup. The patient is otherwise stable. Follow up with primary care physician within 1 to 2 weeks. The patient is stable, discharged home today. MD HENRIETTA Lai/WILMERL /[id number]
--- NOTE | 2020-02-17 10:05 | NUR ---
IMM letter delivered and explained to pt. She verbalized understanding. Copy given to pt. Signed copy placed in chart.
[2020-02-17] MEDS: ASPIRIN 325 MG TAB PO SCH (10:08)
[2020-02-17] MEDS: PHENYTOIN SODIUM EXT REL 100 MG CAP PO SCH (10:09)
[2020-02-17] MEDS: CLONIDINE HCL 0.1 MG TAB PO SCH (10:09)
[2020-02-17] MEDS: METOPROLOL TARTRATE 25 MG TAB PO SCH (10:11)
[2020-02-17] MEDS: POTASSIUM CHLORIDE 20 MEQ TAB CR PO SCH (10:11)
[2020-02-17] MEDS: FUROSEMIDE 20 MG TAB PO SCH (10:11)
[2020-02-17] MEDS: LISINOPRIL 20 MG TAB PO SCH (10:12)
[2020-02-17] MEDS: SERTRALINE HCL 100 MG TAB PO SCH (10:12)
[2020-02-17] MEDS: AZITHROMYCIN 250 MG TAB PO SCH (10:12)
[2020-02-17 11:01] VITALS: BP 158/88
--- NOTE | 2020-02-17 12:13 | Operative Report ---
DATE OF PROCEDURE: SURGEON: Rivera Stratton MD INDICATION: Non-ST segment elevation myocardial infarction PROCEDURE IN DETAIL: The patient was brought to the microbiology lab manager in a fasting and partially sedated state, premedicated with hydrocortisone and Benadryl for reported history of iodine allergy. She also was hypertensive. The patient was given numerous doses of IV labetalol, hydralazine, versed and morphine. The right groin prepped with scrubbing and 2% xylocaine and 4-[place] sheath placed in the right common femoral artery. Cardiac catheterization performed with a 4-[place] pigtail, 4-[place]i right and left Loreta catheters. Inspection of films shows left ventricular function, appears relatively normal with estimated ejection fraction 60%. The right coronary artery is a dominant vessel with two or three stents in the distal portion of the vessel. In the proximal and mid portions there are serial 99% stenoses. The left main circumflex and OM were relatively unremarkable. The LAD has a single lesion in its midportion after the 1st diagonal, which is a tubular lesion about 80% to 90% stenosis. Then, the catheter was removed. The sheath there was exchanged for a 6-[place]i sheath, which is sewn in place. The right Loreta guide is advanced into the right coronary artery. She is given heparin and Integrilin. Wire is advanced through the right coronary into the distal vessel with some difficulty at the mid 99% stenosis. Then, using [id number] 2.0 balloon, the distal and proximal lesions were both dilated to nominal pressures with moderate results. Then, a [employer] Synergy stent is advanced into the mid right coronary artery and dilated to 11 atmospheres with excellent result. That balloon is removed and a [employer] Synergy stent is deployed in the proximal right coronary artery to 11 atmospheres with excellent results. The patient is given 600 of Plavix, 325 mg aspirin and Integrilin is left running. Her ACT showed adequate heparin effect. The patient had various aches and pains in her back and her knee due to osteoarthritis. She is removed from the table in stable condition. She is pain free. An EKG is unremarkable. She will continue to have Integrilin drip. Sheath will be pulled when a CT is less than 150 seconds. There was no bleeding. No complication. FINAL IMPRESSION: 1. Complex coronary artery disease as above. 2. Normal left ventricular function. 3. Successful stenting of the proximal mid right coronary artery. 4. Patent distal stents. 5. 80% to 90% stenosis of the mid left anterior descending artery. PLAN: Will be to return in a few weeks to intervene for the LAD. MD JOE Morales/REJI /[id number] cc: MD Ally Lai MD
--- NOTE | 2020-02-17 12:26 | NUR ---
Home O2 eval was done and pt was 87% on RA. CM to pt's bedside and discussed setting up home oxygen. Pt declined multiple times. States she does not want home oxygen at this time. States that she will follow up with Dr. Alexandre outpatient.
--- NOTE | 2020-02-17 13:15 | NUR ---
dr. watkins notified of pt refusal of 02, for home. pt states she will follow up with dr watkins.
--- NOTE | 2020-02-17 13:56 | NUR ---
pt discharged home pt educated on her prescriptions, pt was asked to follow up with her PCP, and to follow up with Dr. Stratton in 2 to 3 weeks, and to follow up with .
== END 2020-02-17 13:50 | disposition home or self-care (01) | DRG 247 ==
LOC: ER 06:37 → ERHOLD 10:40 → MED/SURG2 11:40 → OBSVTOIN 02-14 11:02
PROVIDERS: ADMIT Internal Medicine; ATTEND Internal Medicine
PROC: 027034Z Dilation of Coronary Artery, One Artery with Drug-eluting Intraluminal Device, Percutaneous Approach (ICD-10-PCS; principal; 2020-02-17)
PROC: 4A023N7 Measurement of Cardiac Sampling and Pressure, Left Heart, Percutaneous Approach (ICD-10-PCS; 2020-02-17)
PROC: B2111ZZ Fluoroscopy of Multiple Coronary Arteries using Low Osmolar Contrast (ICD-10-PCS; 2020-02-17)
PROC: B2151ZZ Fluoroscopy of Left Heart using Low Osmolar Contrast (ICD-10-PCS; 2020-02-17)
DX: I21.4 Non-ST elevation (NSTEMI) myocardial infarction (principal); J44.1 Chronic obstructive pulmonary disease with (acute) exacerbation; J44.0 Chronic obstructive pulmonary disease with (acute) lower respiratory infection; I25.10 Atherosclerotic heart disease of native coronary artery without angina pectoris; Z95.5 Presence of coronary angioplasty implant and graft; Z11.59 Encounter for screening for other viral diseases; E11.9 Type 2 diabetes mellitus without complications; E78.5 Hyperlipidemia, unspecified; J20.9 Acute bronchitis, unspecified; E78.00 Pure hypercholesterolemia, unspecified; M41.9 Scoliosis, unspecified; Z90.49 Acquired absence of other specified parts of digestive tract; Z87.891 Personal history of nicotine dependence; R09.02 Hypoxemia; I11.0 Hypertensive heart disease with heart failure; I50.9 Heart failure, unspecified
CPT/HCPCS: 36415; 71045; 71250; 80048; 80053; 80061; 81001; 82550; 82553; 82948; 83735; 83880; 84100; 84484; 85025; 85610; 85730; 87040; 87086; 87635; 92928; 93005; 93306; 93458; 94640; 99152; 99153; 99285; C1766; C1769; C1874; C1887; G0378; J0360; J0456; J0696; J1200; J1327; J1644; J1650; J1720; J1940; J2001; J2250; J2270; J2930; J3010; J7030; J7050; J7512; Q9967